=== PATIENT | female | born 1970 | race Caucasian/White ===

== ENCOUNTER → 2016-10-29 | Outpatient (REF) | payer BC ==
[2016-10-29 12:29] LABS: ALBUMIN 3.7 GM/DL (3.2-5.2); ALBUMIN/GLOBULIN RATIO 1.23 (1.00-1.93); ALKALINE PHOSPHATASE 89 U/L (45-117); ALT/SGPT 27 U/L (12-78); ANION GAP 9 MEQ/L (8-16); AST/SGOT 14 U/L (15-37); BILIRUBIN,TOTAL 0.4 MG/DL (0.2-1.0); BLOOD UREA NITROGEN 15 MG/DL (7-18); CALCIUM LEVEL 8.9 MG/DL (8.5-10.1); CARBON DIOXIDE LEVEL 26 MEQ/L (21-32); CHLORIDE LEVEL 107 MEQ/L (98-107); CHOLESTEROL LEVEL 250 MG/DL (<200); CREATININE FOR GFR 0.73 MG/DL (0.55-1.02); GLOMERULAR FILTRATION RATE > 60.0 (>58); GLUCOSE, FASTING 107 MG/DL (70-105); POTASSIUM SERUM 4.1 MEQ/L (3.5-5.1); SODIUM LEVEL 142 MEQ/L (136-145); TOTAL PROTEIN 6.7 GM/DL (6.4-8.2); TRIGLYCERIDES LEVEL 170 MG/DL (<150)
== END ==
LOC: M LABDRAW1 11:33
PROVIDERS: ATTEND Emergency Medicine
DX: E78.2 Mixed hyperlipidemia (principal); I10 Essential (primary) hypertension

== ENCOUNTER → 2017-03-14 | Outpatient (CLI) | payer BC ==
[2017-03-14 14:12] LABS: ANION GAP 7 MEQ/L (8-16); BLOOD UREA NITROGEN 22 MG/DL (7-18); CALCIUM LEVEL 8.9 MG/DL (8.5-10.1); CARBON DIOXIDE LEVEL 26 MEQ/L (21-32); CHLORIDE LEVEL 106 MEQ/L (98-107); CREATININE FOR GFR 0.76 MG/DL (0.55-1.02); GLOMERULAR FILTRATION RATE > 60.0 (>58); GLUCOSE, FASTING 91 MG/DL (70-105); POTASSIUM SERUM 4.2 MEQ/L (3.5-5.1); SODIUM LEVEL 139 MEQ/L (136-145)
== END ==
LOC: M WUC 08:52
PROVIDERS: ATTEND Physician Assistant Medical
DX: I10 Essential (primary) hypertension (principal)

== ENCOUNTER → 2018-05-16 | Outpatient (CLI) | payer BC ==
[2018-05-16 12:40] LABS: BASO % 0.3 % (0.0-1.0); EOS # 0.2 10^3/uL (0.0-0.50); HEMOGLOBIN 14.4 g/dl (12.0-15.5); IMMATURE GRANULOCYTE % 0.7 % (0-3.0); LYMPH # 2.4 10^3/uL (1.5-4.5); LYMPH % 21.7 % (24.0-44.0); MEAN CORPUSCULAR HEMOGLOBIN 31.4 pg (27.0-33.0); MEAN CORPUSCULAR HGB CONC 34.3 g/dl (32.0-36.5); MEAN CORPUSCULAR VOLUME 91.5 fl (80.0-96.0); MONO # 0.8 10^3/uL (0.0-0.8); MONO % 6.9 % (0.0-5.0); NEUTROPHILS # 7.4 10^3/uL (1.8-7.7); NEUTROPHILS % 68.4 % (36.0-66.0); PLATELET COUNT, AUTOMATED 267 10^3/uL (150-450); RED BLOOD COUNT 4.59 10^6/uL (4.00-5.40); RED CELL DISTRIBUTION WIDTH 12.6 % (11.5-14.5); WHITE BLOOD COUNT 10.8 10^3/uL (4.0-10.0)
[2018-05-16 13:05] LABS: ALBUMIN 3.5 GM/DL (3.2-5.2); ALKALINE PHOSPHATASE 65 U/L (45-117); ALT/SGPT 30 U/L (12-78); ANION GAP 8 MEQ/L (8-16); AST/SGOT 19 U/L (7-37); BILIRUBIN,TOTAL 0.4 MG/DL (0.2-1.0); BLOOD UREA NITROGEN 9 MG/DL (7-18); CALCIUM LEVEL 9.1 MG/DL (8.5-10.1); CARBON DIOXIDE LEVEL 24 MEQ/L (21-32); CHLORIDE LEVEL 108 MEQ/L (98-107); CREATININE FOR GFR 0.69 MG/DL (0.55-1.30); GLOMERULAR FILTRATION RATE > 60.0 (>58); GLUCOSE, FASTING 97 MG/DL (70-100); POTASSIUM SERUM 4.3 MEQ/L (3.5-5.1); SODIUM LEVEL 140 MEQ/L (136-145); TOTAL PROTEIN 7.1 GM/DL (6.4-8.2)
[2018-05-16 16:11] LABS: ALBUMIN/GLOBULIN RATIO 0.97 (1.00-1.93)
[2018-05-18 00:07] LABS: EBV VIRAL CAPSID AG IgM <36.0 U/mL (0.0-35.9)
== END ==
LOC: M WUC 10:00
DX: J02.9 Acute pharyngitis, unspecified (principal)
CPT/HCPCS: 80053

== ENCOUNTER → 2018-05-16 | Outpatient (REF) | payer BC | LOC: M LAB REF 12:13 | DX: J02.9 Acute pharyngitis, unspecified (principal) | CPT/HCPCS: 87081 ==

== ENCOUNTER → 2019-07-05 | Outpatient (CLI) | payer BC ==
[2019-07-05 13:30] LABS: ALBUMIN 3.5 GM/DL (3.2-5.2); ALT/SGPT 23 U/L (12-78); BILIRUBIN,TOTAL 0.4 MG/DL (0.2-1.0); BLOOD UREA NITROGEN 16 MG/DL (7-18); CALCIUM LEVEL 9.2 MG/DL (8.5-10.1); CARBON DIOXIDE LEVEL 25 MEQ/L (21-32); CHLORIDE LEVEL 108 MEQ/L (98-107); CHOLESTEROL LEVEL 329 MG/DL (<200); CHOLESTEROL RISK RATIO 6.854 (<5); CREATININE FOR GFR 0.86 MG/DL (0.55-1.30); GLOMERULAR FILTRATION RATE > 60.0 (>58); GLUCOSE, FASTING 100 MG/DL (70-100); HDL CHOLESTEROL 48 MG/DL (>40); LDL CHOLESTEROL 225 MG/DL (<100); NON-HDL-C 281 MG/DL; POTASSIUM SERUM 4.3 MEQ/L (3.5-5.1); SODIUM LEVEL 139 MEQ/L (136-145); TOTAL PROTEIN 7.4 GM/DL (6.4-8.2); TRIGLYCERIDES LEVEL 280 MG/DL (<150)
[2019-07-05 13:38] LABS: BASO % 0.3 % (0.0-1.0); EOS # 0.2 10^3/uL (0.0-0.5); EOS % 1.8 % (0.0-3.0); HEMOGLOBIN 15.7 g/dl (12.0-15.5); LYMPH # 2.4 10^3/uL (1.5-5.0); LYMPH % 26.3 % (24.0-44.0); MEAN CORPUSCULAR HGB CONC 32.7 g/dl (32.0-36.5); MEAN CORPUSCULAR VOLUME 94.7 fl (80.0-96.0); MONO # 0.6 10^3/uL (0.0-0.8); NEUTROPHILS # 5.7 10^3/uL (1.5-8.5); NEUTROPHILS % 63.5 % (36.0-66.0); PLATELET COUNT, AUTOMATED 288 10^3/uL (150-450); RED BLOOD COUNT 5.07 10^6/uL (4.00-5.40); WHITE BLOOD COUNT 8.9 10^3/uL (4.0-10.0)
== END ==
LOC: M SMT 08:55
PROVIDERS: ATTEND Physician Assistant
DX: I10 Essential (primary) hypertension (principal); E78.2 Mixed hyperlipidemia; K21.9 Gastro-esophageal reflux disease without esophagitis

== ENCOUNTER → 2019-11-22 | Outpatient (CLI) | payer BC ==
[2019-11-22 10:31] LABS: ALBUMIN 3.3 GM/DL (3.2-5.2); ALT/SGPT 61 U/L (12-78); BILIRUBIN,TOTAL 0.4 MG/DL (0.2-1.0); BLOOD UREA NITROGEN 14 MG/DL (7-18); CALCIUM LEVEL 9.2 MG/DL (8.5-10.1); CARBON DIOXIDE LEVEL 25 MEQ/L (21-32); CHLORIDE LEVEL 109 MEQ/L (98-107); CHOLESTEROL LEVEL 189 MG/DL (<200); CREATININE FOR GFR 0.69 MG/DL (0.55-1.30); GLOMERULAR FILTRATION RATE > 60.0 (>58); GLUCOSE, FASTING 108 MG/DL (70-100); HDL CHOLESTEROL 42 MG/DL (>40); LDL CHOLESTEROL 122 MG/DL (<100); NON-HDL-C 147 MG/DL; POTASSIUM SERUM 4.7 MEQ/L (3.5-5.1); SODIUM LEVEL 141 MEQ/L (136-145); TOTAL PROTEIN 6.8 GM/DL (6.4-8.2); TRIGLYCERIDES LEVEL 126 MG/DL (<150)
== END ==
LOC: M WUC 08:54
PROVIDERS: ATTEND Physician Assistant
DX: E78.5 Hyperlipidemia, unspecified (principal)

== ENCOUNTER → 2020-04-25 | Outpatient (CLI) | payer BC ==
[~2020-04-25] MED LIST: ACET-908 PO; AMLO1TAB24 PO; ASPI81TA26 PO; CRES5TAB PO; ELIQ5TAB PO; FISH1000 PO; IBUP-1114 PO; LOSA100T50 PO; NORT0.5T2 PO; OMEG1CAP4 PO; OMEP1CAP73 PO
[2020-04-25 12:06] LABS: HEMATOCRIT 42.8 % (36.0-47.0); HEMOGLOBIN 14.1 g/dl (12.0-15.5); MEAN CORPUSCULAR HEMOGLOBIN 29.7 pg (27.0-33.0); MEAN CORPUSCULAR HGB CONC 32.9 g/dl (32.0-36.5); MEAN CORPUSCULAR VOLUME 90.3 fl (80.0-96.0); PLATELET COUNT, AUTOMATED 317 10^3/uL (150-450); RED BLOOD COUNT 4.74 10^6/uL (4.00-5.40); WHITE BLOOD COUNT 8.3 10^3/uL (4.0-10.0)
[2020-04-25 12:36] LABS: BLOOD UREA NITROGEN 13 MG/DL (7-18); CALCIUM LEVEL 9.1 MG/DL (8.5-10.1); CARBON DIOXIDE LEVEL 24 MEQ/L (21-32); CHLORIDE LEVEL 109 MEQ/L (98-107); CREATININE FOR GFR 0.77 MG/DL (0.55-1.30); GLOMERULAR FILTRATION RATE > 60.0 (>58); GLUCOSE, FASTING 100 MG/DL (70-100); POTASSIUM SERUM 4.3 MEQ/L (3.5-5.1); SODIUM LEVEL 137 MEQ/L (136-145)
== END ==
LOC: M LAB 11:13
PROVIDERS: ATTEND Physician Assistant
DX: I70.212 Atherosclerosis of native arteries of extremities with intermittent claudication, left leg (principal)

== ENCOUNTER → 2020-04-28 | Outpatient (CLI) | payer BC ==
[~2020-04-28] MED LIST changes: +ISOVUE-300 61% 50ML VIAL As Ordered ONE; +LIDOCAINE 1% MDV 20ML VIAL As Ordered ONE; +MIDAZOLAM INJ 2MG/2ML VIAL (J2250 PER 1MG) As Ordered ONE; +fentaNYL 100 MCG/2 ML INJECTION (J3010) As Ordered ONE
== END ==
LOC: M IRPRO 08:43
PROVIDERS: ATTEND Surgery Vascular Surgery
DX: I70.212 Atherosclerosis of native arteries of extremities with intermittent claudication, left leg (principal); Z53.9 Procedure and treatment not carried out, unspecified reason

== ENCOUNTER 2020-05-19 08:18 | Inpatient (IN) | payer BC ==
[~2020-05-19] VITALS: Ht 157.5 cm; Wt 106.1 kg
[~2020-05-19 08:18] MED LIST changes: -ACET-908 PO; -ELIQ5TAB PO; -ISOVUE-300 61% 50ML VIAL As Ordered ONE; -LIDOCAINE 1% MDV 20ML VIAL As Ordered ONE; -MIDAZOLAM INJ 2MG/2ML VIAL (J2250 PER 1MG) As Ordered ONE; -OMEG1CAP4 PO; -fentaNYL 100 MCG/2 ML INJECTION (J3010) As Ordered ONE
[2020-05-19] MEDS ORDERED: ATORVASTATIN 20 MG TAB PO SCH (09:00)
[2020-05-19] MEDS ORDERED: fentaNYL 100 MCG/2 ML INJECTION (J3010) As Ordered ONE (09:12)
[2020-05-19] MEDS ORDERED: MIDAZOLAM INJ 2MG/2ML VIAL (J2250 PER 1MG) As Ordered ONE (09:13)
[2020-05-19] MEDS ORDERED: LIDOCAINE 1% MDV 20ML VIAL As Ordered ONE (09:13)
[2020-05-19] MEDS ORDERED: ISOVUE-300 61% 50ML VIAL As Ordered ONE (09:13)
[2020-05-19] MEDS ORDERED: METOPROLOL 5 MG/5 ML VIAL As Ordered ONE (10:15)
[2020-05-19] MEDS ORDERED: ALTEPLASE 2MG/2ML VIAL As Ordered ONE (10:39)
[2020-05-19] MEDS ORDERED: HEPARIN 25,000 UNITS/250 ML D5W BAG (100 UNITS/ML) (J1644 PER 1000UNITS) As Ordered ONE (10:46)
[2020-05-19] MEDS ORDERED: ALTEPLASE RECOMBINANT 25 MG in NS 225 ML IV SCH (11:00)
[2020-05-19] MEDS ORDERED: HEPARIN DRIP 25,000 UNITS in IV 1 EA IV SCH (11:00)
[2020-05-19] MEDS ORDERED: NS 1,000 ML IV SCH (11:30)
[2020-05-19] MEDS ORDERED: diazePAM 5 MG TAB PO PRN (11:30)
[2020-05-19] MEDS ORDERED: PERCOCET 5MG/325MG TAB PO PRN ×2 (11:30)
--- NOTE | 2020-05-19 11:54 | ROOPDOC ---
[facility] Report Of Operation Report of Operation DATE OF PROCEDURE: 05/19/20 PREPROCEDURE DIAGNOSES: Atherosclerosis the [place] arteries with left lower extremity lifestyle limiting claudication POSTPROCEDURE DIAGNOSES: Likely embolic event left tibioperoneal trunk, mid left anterior tibial artery PROCEDURE: 1. Ultrasound-guided access right common femoral artery 2. Aortoiliofemoral arteriogram and selection of the left superficial femoral artery with left lower extremity runoff 3. Placement of a 30 cm infusion length TPA thrombolysis catheter left popliteal artery and anterior tibial artery, confirmed by arteriogram SURGEON: Karime Mendez MD ANESTHESIA: Local anesthesia 9 mL lidocaine. Moderate intravenous conscious s edation was supervised by Dr. Mendez. The patient was independently monitored by registered nurse assigned to the Department of radiology using automated blood pressure, EKG, and pulse oximetry. A detailed sedation record is permanently stored in the hospital information system. The following is a brief sedation record: Start time 10:31, stop time 10:48, Versed 1.5 mg IV, fentanyl 75 g IV, metoprolol 5 mg IV, tPA 8 mg IV. CONTRAST: 38 mL Isovue-300 INDICATION FOR PROCEDURE: Ms. Martinez is a 49-year-old patient with suspected atherosclerosis of the [place] arteries and lifestyle limiting claudication and left lower extremity. Risks benefits and alternatives to a left lower extremity arteriogram and potential intervention were explained to the patient and she is agreeable to proceed. Informed consent was obtained. INTERPRETATION: 1. The distal aorta and common iliac arteries, hypogastric arteries, and external iliac arteries are widely patent bilaterally. 2. The left common femoral artery and profunda are widely patent. The left superficial femoral artery is widely patent. Mild ectasias noted. No flow limitation noted. The left popliteal artery is also widely patent. 3. The patient has a flushed complete occlusion of her tibioperoneal trunk at the origin and does not reconstitute and still the distal peroneal and posterior tibial arteries through thready collaterals. She does have flow through the anterior tibial artery but it also occludes at the distal calf and reconstitutes minimally into the dorsal pedis artery through thready collaterals. 4. Successful placement of left 30 cm infusion length TPA thrombolysis catheter left popliteal artery and anterior tibial artery. REPORT OF OPERATION: Patient was brought to the angiographic suite in stable condition. Her bilateral groins were prepped and draped in a sterile fashion. A timeout was performed. Sedation was administered without complication. Local anesthesia was administer to skin and subcutaneous tissue over the right common femoral artery. A microneedle was used to access the artery under ultrasound guidance. A wire was passed through this access and the needle was removed. A 4 Qatari sheath was placed and flushed with saline. Next, a Glidewire and flushing catheter were advanced into the distal aorta. Please see interpretation above for aortoiliofemoral arteriogram. We then went up and over the bifurcation with the wire and the catheter and selected the left superficial femoral artery and a left lower extremity runoff was performed. Please see interpretation above. At this point, I did not feel this was atherosclerosis and more likely an embolic event. Therefore, we exchanged the sheath for 7 Qatari sheath and flushed the sheath with saline. We then introduced a 30 cm infusion length TPA thrombolysis catheter through the left popliteal artery into the left anterior tibial artery. Initially, I tried to cross through the tibioperoneal trunk, but this proved difficult, likely due to chronicity of the thrombus possibly as an alternative this may have been a plaque embolic event. Therefore, we navigated the catheter into the anterior tibial artery down to the area of occlusion at the distal calf. We were not able to pass it through this area, but up to it. Hopefully, after 24 hours of TPA, both areas will soften and we may be able to reposition the catheter tomorrow if necessary to provide more thrombolysis. 8 mg of TPA was injected through the catheter. I discussed with the patient while we are waiting for the TPA drip whether or not she felt she might be able to urinate on a bedpan and she was uncertain. Therefore I felt the safest thing to do was to place a Parmar catheter. First, we did place sterile dressings over the sheath and catheter securing it to the leg to prevent dislodgment. We flushed the 7 Lex nch sheath with saline and of 400 unit an hour heparin drip was begun through the sheath. We then placed a Parmar catheter very carefully to prevent trauma to the urethra. This was successful. No hematuria was noted. We then began the TPA thrombolysis drip through the thrombolysis catheter. The patient was then transferred to Hospital bed and to the ICU in stable condition. She tolerated the sedation and the procedure well without difficulty. ESTIMATED BLOOD LOSS: Approximately 5 mL. COMPLICATIONS: None. PLAN: We plan to admit the patient to hospitalist service, we appreciate their assistance with this patient. She will go to the ICU while she is receiving thrombolysis. We will monitor closely for signs of bleeding or mental status changes and monitor her perfusion. We plan to bring the patient back at some point tomorrow for repeat arteriogram and at that time we will decide if we need to continue or discontinue the thrombolysis catheter. We will follow her fibrinogen and hemoglobin during this period. She will have a full liquid diet and nothing by mouth after midnight. She will need to be on flat bed rest, but it is okay for pillow under the knees or reverse Trendelenburg. Logroll only. We appreciate the opportunity to per to speak the care of this patient. KARIME MENDEZ MD May 19, 2020 11:54
[2020-05-19 12:24] LABS: HEMATOCRIT 38.6 % (36.0-47.0); HEMOGLOBIN 12.9 g/dl (12.0-15.5); MEAN CORPUSCULAR HEMOGLOBIN 29.7 pg (27.0-33.0); MEAN CORPUSCULAR HGB CONC 33.4 g/dl (32.0-36.5); MEAN CORPUSCULAR VOLUME 88.7 fl (80.0-96.0); PLATELET COUNT, AUTOMATED 273 10^3/uL (150-450); RED BLOOD COUNT 4.35 10^6/uL (4.00-5.40); WHITE BLOOD COUNT 9.4 10^3/uL (4.0-10.0)
--- NOTE | 2020-05-19 12:43 | HPEPDOC ---
General Date of Admission 05/19/20 Date of Service: May 19, 2020 Chief Complaint The patient is a 49-year-old female admitted with a reason for visit of [place] Of [place] Vessels Of Left Leg. Source: Patient Exam Limitations: No limitations Timing/Duration: Day(s) Severity: Moderate History of Present Illness Patient is 49 years old female with past medical history of hyperlipidemia, hypertension was admitted for thrombolysis of left distal leg. Dr. Madrid performed thrombolysis after aortoiliofemoral arteriogram. Patient stated that she has been having lifestyle limiting claudication of the left lower extremity. Patient tolerated procedure well. Patient denied fever, chills, nausea, vomiting, diarrhea or dysuria. Home Medications Scheduled Amlodipine Besylate (Amlodipine Besylate) 5 Mg Tablet, 5 MG PO DAILY, (Reported) Aspirin (Aspirin EC) 81 Mg Tablet.dr, 81 MG PO DAILY, (Reported) Losartan Potassium (Losartan Potassium) 100 Mg Tablet, 100 MG PO DAILY, (Reported) Norethindrone-Ethinyl Estrad (Nortrel 0.5-35-28 Tablet) 1 Each Tablet, 1 TAB PO DAILY for oral contraception, (Reported) Omeprazole (Omeprazole) 20 Mg Capsule.dr, 20 MG PO DAILY, (Reported) Rosuvastatin Calcium (Crestor) 5 Mg Tablet, 5 MG PO DAILY, (Reported) Scheduled PRN Ibuprofen (Ibuprofen) 400 Mg Tablet, 400 MG PO Q6HP PRN for fever, (Reported) Allergies Coded Allergies: No Known Drug Allergies (Verified Allergy, Unknown, 05/19/20) Past Medical History Medical History Hypertension, hyperlipidemia, peripheral vascular diseases Family History Mother from cancer, father had hyperlipidemia and hypertension Social History * Smoker: former Smoker Alcohol: occationally Drugs: denies A-FIB/CHADSVASC A-FIB History Current/History of A-Fib/PAF?: No Current PO Anticoag Therapy: No Review of Systems Constitutional: Denies: Chills Eyes: Denies: Pain ENT: Denies: Head Aches Skin: Denies: Rash, Lesions Pulmonary: Denies: Dyspnea Cardiovascular: Denies: Chest Pain Gastrointestinal: Denies: Nausea, Vomiting Genitourinary: Denies: Dysuria Hematologic: Denies: Bruising Musculoskeletal: Reports: Leg Pain (claudication); Denies: Neck Pain Neurological: Denies: Weakness Psych: Reports: Mood Normal Physical Examination General Exam: Positive: Alert, Cooperative Eye Exam: Positive: PERRLA ENT Exam: Positive: Atraumatic Neck Exam: Positive: Supple; Negative: JVD Chest Exam: Positive: Clear to auscultation Heart Exam: Positive: Rate Normal Telemetry: Positive: No significant arrhythmia Abdomen Exam: Positive: Normal bowel sounds Extremity Exam: Negative: Clubbing, Cyanosis, Normal pulses (diminished pulses left dorsalis pedis ) Skin Exam: Negative: Rash, Breakdown Neuro Exam: Positive: Strength at 5/5 X4 ext, Cranial Nerves 3-12 NL Psych Exam: Positive: Mental status NL Vital Signs Vital Signs Date Time Temp Pulse Resp B/P (MAP) Pulse Ox O2 Delivery O2 Flow Rate FiO2 05/19/20 11:40 92 20 97 Room Air 05/19/20 11:15 2 05/19/20 08:40 99.7 Laboratory Data Labs 24H Laboratory Tests 2 05/19/20 11:27: Nucleated Red Blood Cells % (auto) 0.0 CBC/BMP Laboratory Tests 05/19/20 11:27 Assessment/Plan Patient is 49 years old female with past medical history of hyperlipidemia, hypertension was admitted for thrombolysis of left distal leg. Dr. Madrid performed thrombolysis after aortoiliofemoral arteriogram. Patient stated that she has been having lifestyle limiting claudication of the left lower extremity. Patient tolerated procedure well. Patient denied fever, chills, nausea, vomiting , diarrhea or dysuria. Problems (1) Peripheral vascular disease Status: Chronic Problem Text: Continue thrombolysis Vascular surgical team follows her (2) Hyperlipidemia Status: Chronic Problem Text: Atorvastatin 40 mg daily (3) Hypertension Status: Chronic Problem Text: Continue home meds Plan / VTE VTE Prophylaxis Ordered?: Yes JAVIER GLASER DO May 19, 2020 12:43
[2020-05-19 12:45] VITALS: BP 123/77
[2020-05-19] MEDS ORDERED: OMEG1CAP4 PO (12:46)
[2020-05-19] MEDS: ACETAMINOPHEN TAB 650MG DOSE (2X325MG) PO PRN (13:08)
[2020-05-19 14:00] VITALS: BP 123/66
[2020-05-19 16:00] VITALS: BP 122/72
[2020-05-19] MEDS: IBUPROFEN 400 MG TAB PO PRN ×2 (16:22→23:29)
[2020-05-19 17:44] LABS: HEMOGLOBIN 12.7 g/dl (12.0-15.5); MEAN CORPUSCULAR HEMOGLOBIN 29.7 pg (27.0-33.0); MEAN CORPUSCULAR HGB CONC 33.4 g/dl (32.0-36.5); MEAN CORPUSCULAR VOLUME 88.8 fl (80.0-96.0); PLATELET COUNT, AUTOMATED 239 10^3/uL (150-450); RED BLOOD COUNT 4.28 10^6/uL (4.00-5.40); WHITE BLOOD COUNT 10.7 10^3/uL (4.0-10.0)
[2020-05-19 19:00] VITALS: BP 123/70
[2020-05-19 20:00] VITALS: BP 147/88
[2020-05-19 23:24] LABS: HEMATOCRIT 36.5 % (36.0-47.0); HEMOGLOBIN 12.3 g/dl (12.0-15.5); MEAN CORPUSCULAR HGB CONC 33.7 g/dl (32.0-36.5); PLATELET COUNT, AUTOMATED 217 10^3/uL (150-450)
[2020-05-20] VITALS: BP 128/63
[2020-05-20] MEDS ORDERED: MORPHINE 2 MG/ML 1ML VIAL (J2270) IV PRN (01:45)
[2020-05-20] MEDS ORDERED: MORPHINE 2 MG/ML 1ML VIAL (J2270) As Ordered ONE (01:47)
[2020-05-20 04:00] VITALS: BP 144/86
[2020-05-20 05:54] LABS: HEMATOCRIT 37.5 % (36.0-47.0); HEMOGLOBIN 12.5 g/dl (12.0-15.5); MEAN CORPUSCULAR HEMOGLOBIN 29.7 pg (27.0-33.0); MEAN CORPUSCULAR HGB CONC 33.3 g/dl (32.0-36.5); MEAN CORPUSCULAR VOLUME 89.1 fl (80.0-96.0); PLATELET COUNT, AUTOMATED 197 10^3/uL (150-450); RED BLOOD COUNT 4.21 10^6/uL (4.00-5.40); WHITE BLOOD COUNT 10.5 10^3/uL (4.0-10.0)
[2020-05-20 06:21] LABS: BLOOD UREA NITROGEN 9 MG/DL (7-18); CALCIUM LEVEL 8.1 MG/DL (8.5-10.1); CARBON DIOXIDE LEVEL 22 MEQ/L (21-32); CHLORIDE LEVEL 109 MEQ/L (98-107); CREATININE FOR GFR 0.62 MG/DL (0.55-1.30); GLOMERULAR FILTRATION RATE > 60.0 (>58); GLUCOSE, FASTING 118 MG/DL (70-100); MAGNESIUM LEVEL 1.8 MG/DL (1.8-2.4); POTASSIUM SERUM 3.8 MEQ/L (3.5-5.1); SODIUM LEVEL 136 MEQ/L (136-145)
[2020-05-20] MEDS ORDERED: HEPARIN SOD (PORCINE) 5000UNITS/ML 1ML VIAL/SYRINGE IV ONE (06:30)
[2020-05-20] MEDS ORDERED: fentaNYL 100 MCG/2 ML INJECTION (J3010) ONE (07:13)
[2020-05-20] MEDS ORDERED: LIDOCAINE 1% MDV 20ML VIAL ONE (07:15)
[2020-05-20] MEDS ORDERED: ISOVUE-300 61% 50ML VIAL ONE (07:15)
[2020-05-20] MEDS ORDERED: MIDAZOLAM INJ 2MG/2ML VIAL (J2250 PER 1MG) ONE (07:15)
[2020-05-20 08:00] VITALS: BP 144/85
[2020-05-20] MEDS ORDERED: OMEPRAZOLE 20 MG CAP PO SCH (09:00)
[2020-05-20] MEDS ORDERED: amLODIPine 5 MG TAB PO SCH (09:00)
[2020-05-20] MEDS ORDERED: APIXABAN 5 MG TAB (ELIQUIS) PO SCH (09:00)
[2020-05-20] MEDS ORDERED: ASPIRIN 81 MG ENTERIC TAB PO SCH (09:00)
[2020-05-20] MEDS ORDERED: LOSARTAN 50MG TABLET PO SCH (09:00)
--- NOTE | 2020-05-20 09:02 | ROOPDOC ---
[facility] Report Of Operation Report of Operation DATE OF PROCEDURE: 05/20/20 PREPROCEDURE DIAGNOSES: Left tibial artery occlusion with claudication, suspected embolism, s/p TPA thrombolysis POSTPROCEDURE DIAGNOSES: Same PROCEDURE: 1. Left lower extremity arteriogram 2. Removal TPA thrombolysis catheter 3. Angioplasty left anterior tibial artery with 2.5 x 220 bianka balloon 4. Completion arteriogram 5. Mynx closure right common femoral artery SURGEON: Karime Mendez MD ANESTHESIA: Moderate intravenous conscious sedation was supervised by Dr Mendez. The patient was independently monitored by a registered nurse assigned to the department of radiology using automated blood pressure, ECG telemetry, and pulse oximetry. The detailed sedation record is permanently stored in the hospital information system. The following is a brief sedation record: Start time 07:55, stop time 08:27, versed 1mg IV, fentanyl 50mcgg IV, heparin 3000 units, TPA 1.5mg. CONTRAST: 19 mL Isoview 300 INDICATION FOR PROCEDURE: This is a very pleasant 49-year-old patient with suspected embolic event to the left lower extremity involving the distal anterior tibial artery and the tibioperoneal trunk in the proximal peroneal and posterior tibial arteries. She returns today for a planned second arteriogram after overnight TPA thrombolysis with a catheter placed yesterday. Risks benefits alternatives to an arteriogram, possible removal of the TPA thrombolysis catheter, possible angioplasty possible stenting were explained to the patient she is agreeable to proceed. I did discuss with her that because her fibrinogen was low overnight, we did not feel comfortable continuing the TPA, and likely she did not receive enough TPA to fully resolve the chronic thrombus in the left lower extremity. However, we are limited in the duration of TPA if her fibrinogen becomes dangerously low, and I did not want to put her at undue risk. She understands this. Informed consent was obtained INTERPRETATION: 1. The popliteal artery and inflow into the anterior tibial artery is widely patent. She still has occlusion of the distal anterior tibial artery, and appears to be chronic thrombus, with some collateralization from the proximal anterior tibial artery to the peroneal and posterior tibial arteries which fell from the mid calf distally. Overall, minimal improvement in thrombus noted after TPA. 2. After angioplasty of the anterior tibial artery distally, to make sure we were not dealing with chronic plaque instead of an embolic event, we did not notice significant improvement and outflow through the anterior tibial artery although some improvement was noted. Still, the major outflow to the lower extremity is from collaterals from the proximal anterior tibial artery to the peroneal and posterior tibial artery in the mid distal calf. REPORT OF OPERATION: The patient was brought to the angiographic suite in stable condition. Her right groin including the catheter and sheath were prepped and draped in a sterile fashion. A timeout was performed. Sedation was administered without complication. An arteriogram was performed through the existing TPA catheter. Please interpretation above. We attempted to pass a wire through the catheter, but there was a kink in the catheter and the wire did not pass. Therefore, we removed the TPA catheter and went up and over the bifurcation with a Glidewire and Omni Flush catheter. We then performed another arteriogram of the left lower extremity, please interpretation above. Next, we advanced a Glidewire advantage down into the distal anterior tibial artery under fluoroscopic guidance. A 2.5 x 220 Bianka balloon was passed over the wire and will use this to angioplasty the anterior tibial artery from the distal to the mid proximal vessel. A three-minute inflation was performed and following this there was a mild improvement in flow, but this was not a plaque occlusion, it confirmed that this is chronic thrombus. 1.5 mg of TPA was given through the balloon into the anterior tibial artery and then the balloon was removed. We then concluded our procedure as we realized further angioplasty would be futile since this was chronic thrombus and not plaque. The Mynx closure device was deployed with good hemostasis. Pressure was held for 5 minutes and sterile dressings were applied. The patient was taken to recovery and then back to the ICU in stable condition. She tolerated the procedure and the sedation well. ESTIMATED BLOOD LOSS: Approximately 5 mL. COMPLICATIONS: None. PLAN: Unfortunately, it was not safe to continue TPA with her fibrinogen continuing to decrease, but she likely would have benefitted from another 24 hours of TPA. She still has quite a bit of chronic thrombus, both in the distal left anterior tibial artery and the tibioperoneal trunk/proximal peroneal/posterior tibial arteries. For now, we will start her on eliquis which may improve her claudication, but she will likely need another attempt at TPA in the near future once her fibrinogen level normalizes, vs a bypass to the distal posterior tibial artery. We will see how she does outpatient with anticoagulation and decide on further management. 5 hours bedrest post proced ure, d/c hernandez, regular diet, start eliquis this morning, and likely d/c home this afternoon. We appreciate the hospitalist's assistance with this patient. KARIME MENDEZ MD May 20, 2020 09:02
[2020-05-20 09:21] VITALS: BP 144/85
[2020-05-20 12:00] VITALS: BP 146/80
[2020-05-20] MEDS ORDERED: ELIQ5TAB PO (13:09)
[2020-05-20] MEDS: ACETAMINOPHEN TAB 650MG DOSE (2X325MG) PO PRN (13:28)
[2020-05-20 13:35] LABS: HEMATOCRIT 39.6 % (36.0-47.0); MEAN CORPUSCULAR HEMOGLOBIN 29.4 pg (27.0-33.0); MEAN CORPUSCULAR HGB CONC 32.8 g/dl (32.0-36.5); MEAN CORPUSCULAR VOLUME 89.6 fl (80.0-96.0); PLATELET COUNT, AUTOMATED 214 10^3/uL (150-450); RED BLOOD COUNT 4.42 10^6/uL (4.00-5.40); WHITE BLOOD COUNT 9.3 10^3/uL (4.0-10.0)
[2020-05-20 13:52] LABS: INR 1.23; PROTHROMBIN TIME 15.7 SECONDS (11.8-14.0)
[2020-05-20 13:53] LABS: PARTIAL THROMBOPLASTIN TIME 32.4 SECONDS (25.0-38.4)
--- NOTE | 2020-05-20 17:30 | DS.PDOC ---
Discharge Summary General Date of Admission May 19, 2020 at 12:38 Date of Discharge 05/20/20 Discharge Summary PROCEDURES PERFORMED DURING STAY: Thrombolysis ADMITTING DIAGNOSES: Peripheral vascular disease Hyperlipidemia Hypertension Morbid obesity DISCHARGE DIAGNOSES: Peripheral vascular disease Hyperlipidemia Hypertension Morbid obesity COMPLICATIONS/CHIEF COMPLAINT: Athscl Of [place] Vessels Of Left Leg. HISTORY OF PRESENT ILLNESS:Patient is 49 years old female with past medical history of hyperlipidemia, hypertension was admitted for thrombolysis of left distal leg. Dr. Madrid performed thrombolysis after aortoiliofemoral wang riogram. Patient stated that she has been having lifestyle limiting claudication of the left lower extremity. Patient tolerated procedure well. Patient denied fever, chills, nausea, vomiting, diarrhea or dysuria. HOSPITAL COURSE: During hospital stay following issue addressed. Thrombolysis for left distal leg was initiated.Unfortunately, it was not safe to continue TPA with her fibrinogen continuing to decrease, but she likely would have benefitted from another 24 hours of TPA. She still has quite a bit of chronic thrombus, both in the distal left anterior tibial artery and the tibioperoneal trunk/proximal peroneal/posterior tibial arteries. For now, we will start her on eliquis which may improve her claudication, but she will likely need another attempt at TPA in the near future once her fibrinogen level normalizes, vs a bypass to the distal posterior tibial artery. We will see how she does outpatient with anticoagulation and decide on further management. Most likely patient developed arterial clots due to OCP for control. We recommended to stop OCP. Patient will need follow-up with mineral mixer to rule out any other recent for arterial clots from admission DISCHARGE MEDICATIONS: Please see below. ALLERGIES: Please see below. PHYSICAL EXAMINATION ON DISCHARGE: VITAL SIGNS: Please see below. General Exam: Positive: Alert, Cooperative Eye Exam: Positive: PERRLA ENT Exam: Positive: Atraumatic Neck Exam: Positive: Supple; Negative: JVD Chest Exam: Positive: Clear to auscultation Heart Exam: Positive: Rate Normal Telemetry: Positive: No significant arrhythmia Abdomen Exam: Positive: Normal bowel sounds Extremity Exam: Negative: Clubbing, Cyanosis, Normal pulses (diminished pulses left dorsalis pedis ) Skin Exam: Negative: Rash, Breakdown Neuro Exam: Positive: Strength at 5/5 X4 ext, Cranial Nerves 3-12 NL Psych Exam: Positive: Mental status NL LABORATORY DATA: Please see below. PROGNOSIS: fair ACTIVITY: [As tolerated]. DIET: Cardiac DISPOSITION: Home, Self-Care. DISCHARGE INSTRUCTIONS: Stopped taking OCP ITEMS TO FOLLOWUP ON ON OUTPATIENT: Follow-up with mineral mixer, vascular surgeon DISCHARGE CONDITION: [Stable]. TIME SPENT ON DISCHARGE: Greater than 40 minutes. Vital Signs/I&Os Vital Signs Date Time Temp Pulse Resp B/P (MAP) Pulse Ox O2 Delivery O2 Flow Rate FiO2 05/20/20 12:00 98.9 86 18 146/80 (102) 98 Room Air 05/20/20 08:35 2 I&O- Last 24 Hours up to 6 AM 05/20/20 05:59 Intake Total 1588 ml Output Total 1440 ml Balance 148 ml Laboratory Data Labs 24H Laboratory Tests 2 05/19/20 17:25: Nucleated Red Blood Cells % (auto) 0.0, Fibrinogen 154L 05/19/20 23:08: Nucleated Red Blood Cells % (auto) 0.0, Fibrinogen 132L 05/20/20 05:40: Nucleated Red Blood Cells % (auto) 0.0, Fibrinogen 105L, Anion Gap 5L, Glomerular Filtration Rate > 60.0, Calcium Level 8.1L, Magnesium Level 1.8 05/20/20 12:57: Nucleated Red Blood Cells % (auto) 0.0, Fibrinogen 112L, Prothrombin Time 15.7H, Prothromb Time International Ratio 1.23, Activated Partial Thromboplast Time 32.4 05/20/20 15:13: CBC/BMP Laboratory Tests 05/19/20 17:25 05/19/20 23:08 05/20/20 05:40 05/20/20 12:57 Discharge Medications Scheduled Amlodipine Besylate (Amlodipine Besylate) 5 Mg Tablet, 5 MG PO DAILY, (Reported) Apixaban (Eliquis) 5 Mg Tablet, 5 MG PO BID Aspirin (Aspirin EC) 81 Mg Tablet.dr, 81 MG PO DAILY, (Reported) Losartan Potassium (Losartan Potassium) 100 Mg Tablet, 100 MG PO DAILY, (Reported) Omeprazole (Omeprazole) 20 Mg Capsule.dr, 20 MG PO DAILY, (Reported) Rosuvastatin Calcium (Crestor) 5 Mg Tablet, 5 MG PO QHS, (Reported) Scheduled PRN Ibuprofen (Ibuprofen) 400 Mg Tablet, 400 MG PO Q6H PRN for PAIN / FEVER, (Reported) Allergies Coded Allergies: No Known Drug Allergies (Verified Allergy, Unknown, 05/19/20) JAVIER GLASER DO May 20, 2020 17:30
[2020-05-20] MEDS ORDERED: ATORVASTATIN 20 MG TAB PO SCH (21:00)
[2020-07-15] MEDS ORDERED: ACET-908 PO (11:12)
== END 2020-05-20 15:45 | disposition home or self-care (01) | DRG 181 ==
LOC: M IRPRO 08:18 → M ICU 12:38
PROVIDERS: ADMIT Surgery Vascular Surgery; ATTEND Internal Medicine
PROC: 3E05317 Introduction of Other Thrombolytic into Peripheral Artery, Percutaneous Approach (ICD-10-PCS; 2020-05-19)
PROC: 04HN33Z Insertion of Infusion Device into Left Popliteal Artery, Percutaneous Approach (ICD-10-PCS; principal; 2020-05-19 09:30)
PROC: 04PY33Z Removal of Infusion Device from Lower Artery, Percutaneous Approach (ICD-10-PCS; 2020-05-20)
PROC: 047Q3ZZ Dilation of Left Anterior Tibial Artery, Percutaneous Approach (ICD-10-PCS; 2020-05-20)
PROC: 3E05317 Introduction of Other Thrombolytic into Peripheral Artery, Percutaneous Approach (ICD-10-PCS; 2020-05-20)
DX: I74.3 Embolism and thrombosis of arteries of the lower extremities (principal); I10 Essential (primary) hypertension; E78.5 Hyperlipidemia, unspecified; I70.212 Atherosclerosis of native arteries of extremities with intermittent claudication, left leg; Z79.82 Long term (current) use of aspirin; Z79.899 Other long term (current) drug therapy; Z87.891 Personal history of nicotine dependence

== ENCOUNTER → 2020-07-10 | Outpatient (CLI) | payer BC ==
[~2020-07-10] MED LIST changes: +ACET-908 PO; +ELIQ5TAB PO; +OMEG1CAP4 PO
--- NOTE | 2020-07-10 11:16 | REP ---
INDICATION: ATHSCL ARTERIES W/ CLAUDICATIONS EMBOLISM THROMB A FILE RM. On 05/19/2020 patient underwent catheter thrombolysis in the left lower extremity. COMPARISON: None. TECHNIQUE: Bilateral lower extremity duplex arterial ultrasound. FINDINGS: Ankle brachial indices are measured at 1.3 on the right and 0.9 on the left. Relatively normal triphasic and biphasic waveforms are noted in the left lower extremity and triphasic waveforms are noted in the arterial tree in the right lower extremity. No right-sided stenosis is seen. 3:1 velocity ratio stenosis is observed in the left tibial-peroneal trunk trickle flow is seen in the small anterior tibial artery distally. Right lower extremity arterial Doppler velocity chart: Right PAD EXTRACTION TENDER PSV 111 cm/S Profundal a 109 Proximal SFA 73 Mid SFA 63 Distal SFA 53 Popliteal 39 Proximal FRANCESCA 55 Tibial-peroneal trunk 53 Proximal RESIDENT SERVICES SUPERVISOR 37 Distal RESIDENT SERVICES SUPERVISOR 66 Distal FRANCESCA 55 Left lower extremity arterial Doppler velocity chart: Left PAD EXTRACTION TENDER PSV 93 cm/S Profundal 107 Proximal SFA 72 Mid SFA 83 Distal SFA 56 Popliteal 50 Proximal FRANCESCA 40 Tibial-peroneal trunk 135 Proximal RESIDENT SERVICES SUPERVISOR 47 Distal RESIDENT SERVICES SUPERVISOR 44 Distal FRANCESCA 33 IMPRESSION: There is a 3/1 velocity ratio stenosis in the left tibial-peroneal trunk. Biphasic waveforms are seen distal to this in the left lower extremity. Trickle flow in the distal anterior tibial artery on the left. <Electronically signed by Ap Haynes > 07/10/20 [id number]
== END ==
LOC: M RAD 08:02
PROVIDERS: ATTEND Physician Assistant
DX: M79.606 Pain in leg, unspecified (principal); I70.212 Atherosclerosis of native arteries of extremities with intermittent claudication, left leg

== ENCOUNTER → 2020-07-11 | Outpatient (CLI) | payer BC | LOC: M LABSMTC 11:00 | PROVIDERS: ATTEND Anesthesiology | DX: Z01.812 Encounter for preprocedural laboratory examination (principal); Z20.828 Contact with and (suspected) exposure to other viral communicable diseases | CPT/HCPCS: C9803; U0003 ==

== ENCOUNTER 2020-07-16 12:49 | Day surgery (SDC) | payer BC ==
[~2020-07-16] VITALS: Ht 157.5 cm; Wt 109.8 kg
[~2020-07-16 12:49] MED LIST changes: +NS 1,000 ML IV ONE
[2020-07-16] MEDS ORDERED: MIDAZOLAM INJ 2MG/2ML VIAL (J2250 PER 1MG) As Ordered ONE ×3 (13:38→14:19)
[2020-07-16] MEDS ORDERED: LIDOCAINE VISCOUS 2% SOLN 15ML UDC As Ordered ONE (13:39)
[2020-07-16] MEDS: MIDAZOLAM INJ 2MG/2ML VIAL (J2250 PER 1MG) IV PRN ×3 (14:08→14:19)
[2020-07-16 15:00] VITALS: BP 118/72
[2020-07-16] MEDS ORDERED: LIDOCAINE VISCOUS 2% SOLN 15ML UDC PO ONE (15:00)
[2020-07-16] MEDS ORDERED: MIDAZOLAM INJ 2MG/2ML VIAL (J2250 PER 1MG) IV ONE (15:00)
--- NOTE | 2020-07-17 09:56 | T-ECHO ---
DATE: 07/16/2020 PROCEDURE: Transesophageal echocardiogram. REFERRING PHYSICIAN: Dariel German M.D. INDICATIONS: Arterial embolism of extremities, unspecified. PREPROCEDURE DIAGNOSIS: Arterial embolism of extremities, unspecified. POSTPROCEDURE DIAGNOSIS: Arterial embolism of extremities, unspecified. FINDINGS: Normal KARI with negative bubble study. PROCEDURE PERFORMED BY: Dariel German M.D. LENGTH CONTROL TESTER: SEDATION: Midazolam 7 mg IV. COMPLICATIONS: None. DESCRIPTION OF PROCEDURE: Rhythm was sinus tachycardia. The patient received viscous lidocaine to gargle and swallow. Esophageal intubation was accomplished without difficulty using a Cabrera 2D transesophageal echocardiogram probe. The left ventricle appeared normal in size and systolic function. Right ventricle appeared normal in size and systolic function. The atria appeared to be normal in size. Pulmonary venous inflow connections to the left atrium normal. Pulse wave Doppler in the left upper pulmonary vein was normal. No mass or thrombi was seen within the atria or their appendages. Atrial septum was intact anatomically and by color flow Doppler. Saline bubble study x1 was performed, which was negative for intracardiac shunting. This was performed using 8 mL of normal saline, 1 mL of the patients own blood, and 1 mL of air. We did agitate it back and forth between two 10 mL syringes via a three-way stopcock. Imaging was recorded during Valsalva maneuver release upon appearance of bubbles in the right atrium. No pericardial effusion. All the cardiac functions were structurally functional. Mild mitral regurgitation within normal limits was present. Distal aortic arch and descending thoracic aorta were normal. CONCLUSIONS: 1. Normal transesophageal echocardiogram Doppler. 2. Negative bubble study for detection of intracardiac shunting. 3. Normal left ventricle size and systolic function and regional wall motion. Left ventricular ejection fraction (LVEF) 65%-70% by visual estimate. MTDD
== END 2020-07-16 15:01 | disposition home or self-care (01) ==
LOC: M SDC 12:49
PROVIDERS: ATTEND Internal Medicine Cardiovascular Disease
DX: I74.4 Embolism and thrombosis of arteries of extremities, unspecified (principal); I10 Essential (primary) hypertension; K21.9 Gastro-esophageal reflux disease without esophagitis; E78.49 Other hyperlipidemia; K44.9 Diaphragmatic hernia without obstruction or gangrene; R94.31 Abnormal electrocardiogram [ECG] [EKG]; E66.9 Obesity, unspecified; Z79.01 Long term (current) use of anticoagulants; Z79.82 Long term (current) use of aspirin; Z79.899 Other long term (current) drug therapy
CPT/HCPCS: 93312; 93320; 93325; J2250

== ENCOUNTER → 2020-08-06 | Outpatient (CLI) | payer BC ==
[~2020-08-06] MED LIST changes: -NS 1,000 ML IV ONE
[2020-08-06 17:23] LABS: CHOLESTEROL RISK RATIO 4.64 (<5); FREE T4 0.78 NG/DL (0.76-1.46); THYROID STIMULATING HORMONE 3.09 uIU/ML (0.358-3.740)
[2020-08-06 18:43] LABS: HEMOGLOBIN A1c 5.7 %
== END ==
LOC: M WUC 15:25
PROVIDERS: ATTEND Physician Assistant Medical
DX: E78.2 Mixed hyperlipidemia (principal)

== ENCOUNTER → 2020-09-06 | Outpatient (CLI) | payer BC | LOC: M WUC 14:39 | PROVIDERS: ATTEND Nurse Practitioner Family | DX: N95.1 Menopausal and female climacteric states (principal) ==

== ENCOUNTER → 2021-02-05 | Outpatient (CLI) | payer BC ==
[~2021-02-05] MED LIST changes: -ACET-908 PO; +ACET-910 PO; -OMEG1CAP4 PO; +OMEG1CAP85 PO
[2021-02-05 12:19] LABS: APPEARANCE, URINE HAZY (CLEAR); BACTERIA, URINE AUTO 1+ (NEGATIVE); BILIRUBIN, URINE AUTO NEGATIVE (NEGATIVE); BLOOD, URINE BLOOD NEGATIVE (NEGATIVE); COLOR, URINE YELLOW (YELLOW); GLUCOSE, URINE (UA) AUTO NEGATIVE (NEGATIVE); KETONE, URINE AUTO NEGATIVE (NEGATIVE); LEUKOCYTE ESTERASE, URINE AUTO NEGATIVE (NEGATIVE); MUCUS, URINE SMALL (NEGATIVE); NITRITE, URINE AUTO NEGATIVE (NEGATIVE); PROTEIN, URINE AUTO NEGATIVE (NEGATIVE); RBC, URINE AUTO 2 /HPF (0-3); SPECIFIC GRAVITY URINE AUTO 1.018 (1.002-1.035); SQUAMOUS EPITHELIAL CELL UR AU 3 /HPF (0-6); UROBILINOGEN, URINE AUTO 0.2 mg/dL (0.0-2.0); WBC, URINE AUTO 0 /HPF (0-3)
[2021-02-05 12:26] LABS: BASO % 0.3 % (0.0-1.0); EOS # 0.2 10^3/uL (0.0-0.5); EOS % 2.9 % (0.0-3.0); HEMATOCRIT 42.9 % (36.0-47.0); LYMPH # 2.4 10^3/uL (1.5-5.0); LYMPH % 30.1 % (24.0-44.0); MEAN CORPUSCULAR HEMOGLOBIN 29.8 pg (27.0-33.0); MEAN CORPUSCULAR HGB CONC 32.6 g/dl (32.0-36.5); MEAN CORPUSCULAR VOLUME 91.3 fl (80.0-96.0); MONO # 0.6 10^3/uL (0.0-0.8); MONO % 7.6 % (2.0-8.0); NEUTROPHILS # 4.7 10^3/uL (1.5-8.5); NEUTROPHILS % 58.5 % (36.0-66.0); PLATELET COUNT, AUTOMATED 287 10^3/uL (150-450); WHITE BLOOD COUNT 7.9 10^3/uL (4.0-10.0)
[2021-02-05 12:44] LABS: HEMOGLOBIN A1c 5.5 %
[2021-02-05 13:08] LABS: ALBUMIN 3.6 GM/DL (3.2-5.2); ALT/SGPT 49 U/L (12-78); BILIRUBIN,TOTAL 0.3 MG/DL (0.2-1.0); BLOOD UREA NITROGEN 17 MG/DL (7-18); CALCIUM LEVEL 9.2 MG/DL (8.5-10.1); CARBON DIOXIDE LEVEL 27 MEQ/L (21-32); CHLORIDE LEVEL 107 MEQ/L (98-107); CHOLESTEROL LEVEL 208 MG/DL (<200); CHOLESTEROL RISK RATIO 4.622 (<5); CREATININE FOR GFR 0.68 MG/DL (0.55-1.30); FREE T4 0.79 NG/DL (0.76-1.46); GLOMERULAR FILTRATION RATE > 60.0 (>51); GLUCOSE, FASTING 98 MG/DL (70-100); HDL CHOLESTEROL 45 MG/DL (>40); IRON (FE) 44 UG/DL (50-170); LDL CHOLESTEROL 121 MG/DL (<100); NON-HDL-C 163 MG/DL; POTASSIUM SERUM 4.5 MEQ/L (3.5-5.1); SODIUM LEVEL 139 MEQ/L (136-145); TOTAL PROTEIN 7.3 GM/DL (6.4-8.2); TRIGLYCERIDES LEVEL 209 MG/DL (<150)
[2021-02-05 13:09] LABS: VITAMIN B12 LEVEL 277 PG/ML
[2021-02-05 13:13] LABS: FOLATE 6.8 NG/ML
== END ==
LOC: M WUC 08:44
PROVIDERS: ATTEND Physician Assistant
DX: I10 Essential (primary) hypertension (principal); E78.5 Hyperlipidemia, unspecified; E66.01 Morbid (severe) obesity due to excess calories; R53.83 Other fatigue; R73.01 Impaired fasting glucose

== ENCOUNTER → 2021-02-27 | Outpatient (CLI) | payer BC ==
--- NOTE | 2021-02-27 16:10 | REP ---
INDICATION: ARTERIAL EMBOLISM AND THROMBOSIS. COMPARISON: Comparison lower extremity arterial Doppler sonography 10 July 2020.. TECHNIQUE: Bilateral lower extremity arterial Doppler ultrasound. FINDINGS: Ankle brachial indices are measured at 0.94 on the right and 0.70 on the left. Incidental note is made of a Bell's cyst on the left 3.8 x 1.5 x 1.6 cm in diameter. Are the right lower extremity arterial tree appears morphologically normal. Normal triphasic arterial waveforms and velocities are observed. No high-grade stenosis or occlusion is seen on the right. No significant plaquing on the right. In the left lower extremity no observable plaquing is seen proximally from the common femoral through through the popliteal artery. There is evidence of a mild stenosis in the proximal tibial-peroneal trunk, 2-1 velocity ratio. Flow velocity is decreased and the waveforms are monophasic in the posterior suspect residual thrombus in the proximal posterior tibial artery. The anterior tibial artery appears small and we were unable to fill a vessel with color flow suggesting residual thrombus here. The ankle brachial index is reduced compared to the prior study. Left lower extremity arterial Doppler velocity chart: Left RAIL TRACTOR OPERATOR PSV 112 cm/S Profundal 46 Proximal SFA 68 Mid SFA 80 Distal SFA 75 Popliteal 61 Proximal FRANCESCA 26 Tibial-peroneal trunk 101 Proximal SHOE FOLDER 23 Distal SHOE FOLDER 35 Distal FRANCESCA 65 Right lower extremity arterial Doppler velocity chart: Right RAIL TRACTOR OPERATOR PSV 137 cm/S Profundal 67 Proximal SFA 65 Mid SFA 89 Distal SFA 44 Popliteal 57 Proximal FRANCESCA 36 Tibial-peroneal trunk 48 Proximal SHOE FOLDER 51 Distal SHOE FOLDER 54 Distal FRANCESCA 60 IMPRESSION: Suspect residual thrombus in the SHOE FOLDER and FRANCESCA on the left. Ankle brachial index measured reduced compared to the prior study. No significant atherosclerotic changes on the right. <Electronically signed by Ap Haynes > 02/27/21 [id number]
== END ==
LOC: M RAD 14:01
PROVIDERS: ATTEND Physician Assistant
DX: I74.3 Embolism and thrombosis of arteries of the lower extremities (principal)

== ENCOUNTER → 2021-03-26 | Outpatient (REF) | payer BC ==
[2021-03-26 16:21] LABS: BASO % 0.3 % (0.0-1.0); EOS # 0.3 10^3/uL (0.0-0.5); HEMATOCRIT 44.7 % (36.0-47.0); HEMOGLOBIN 14.7 g/dl (12.0-15.5); LYMPH # 2.4 10^3/uL (1.5-5.0); LYMPH % 26.8 % (24.0-44.0); MEAN CORPUSCULAR HEMOGLOBIN 29.9 pg (27.0-33.0); MEAN CORPUSCULAR HGB CONC 32.9 g/dl (32.0-36.5); MONO # 0.5 10^3/uL (0.0-0.8); MONO % 5.8 % (2.0-8.0); NEUTROPHILS # 5.8 10^3/uL (1.5-8.5); NEUTROPHILS % 63.4 % (36.0-66.0); PLATELET COUNT, AUTOMATED 298 10^3/uL (150-450); RED BLOOD COUNT 4.91 10^6/uL (4.00-5.40); WHITE BLOOD COUNT 9.1 10^3/uL (4.0-10.0)
[2021-03-26 17:09] LABS: ALBUMIN 3.8 GM/DL (3.2-5.2); ALT/SGPT 64 U/L (12-78); BILIRUBIN,TOTAL 0.3 MG/DL (0.2-1.0); BLOOD UREA NITROGEN 12 MG/DL (7-18); CALCIUM LEVEL 9.2 MG/DL (8.5-10.1); CARBON DIOXIDE LEVEL 27 MEQ/L (21-32); CHLORIDE LEVEL 103 MEQ/L (98-107); CREATININE FOR GFR 0.64 MG/DL (0.55-1.30); GLOMERULAR FILTRATION RATE > 60.0 (>51); GLUCOSE, FASTING 113 MG/DL (70-100); POTASSIUM SERUM 4.1 MEQ/L (3.5-5.1); SODIUM LEVEL 137 MEQ/L (136-145); TOTAL PROTEIN 7.2 GM/DL (6.4-8.2)
== END ==
LOC: M SFHCCAPE 09:37
PROVIDERS: ATTEND Physician Assistant
DX: I10 Essential (primary) hypertension (principal)

== ENCOUNTER → 2021-04-29 | Outpatient (CLI) | payer BC ==
[~2021-04-29] MED LIST changes: +CHLO125TA PO; +FERR325T3 PO; +LOSA50TA88 PO; +ROSU10TA6 PO
== END ==
LOC: M LABSMTC 10:16
PROVIDERS: ATTEND Anesthesiology
DX: Z01.818 Encounter for other preprocedural examination (principal); Z11.52 Encounter for screening for COVID-19

== ENCOUNTER 2021-05-04 07:31 | Day surgery (SDC) | payer BC ==
[~2021-05-04] VITALS: Ht 157.5 cm; Wt 108.9 kg
[~2021-05-04 07:31] MED LIST changes: +LIDOCAINE 2% 100MG/5ML SDV (FOR ANES.) As Ordered ONE; +LOSA100T45 PO; -LOSA100T50 PO; +LOSA50TA28 PO; -LOSA50TA88 PO; +NS 1,000 ML IV ONE; +fentaNYL 100 MCG/2 ML INJECTION (J3010) As Ordered ONE; +propofoL 500 MG/50 ML VIAL As Ordered ONE
[2021-05-04] MEDS ORDERED: propofoL 200 MG/20 ML VIAL As Ordered ONE (08:59)
[2021-05-04 09:25] VITALS: BP 130/73
== END 2021-05-04 09:45 | disposition home or self-care (01) ==
LOC: M OPP 07:31
PROVIDERS: ATTEND Internal Medicine Gastroenterology
DX: Z12.11 Encounter for screening for malignant neoplasm of colon (principal); K64.0 First degree hemorrhoids; K44.9 Diaphragmatic hernia without obstruction or gangrene; R12 Heartburn; K22.8 Other specified diseases of esophagus; Z79.899 Other long term (current) drug therapy; Z87.891 Personal history of nicotine dependence
CPT/HCPCS: 43239; 45378; 88305; J3010

== ENCOUNTER → 2021-06-19 | Outpatient (CLI) | payer BC ==
[~2021-06-19] MED LIST changes: -LIDOCAINE 2% 100MG/5ML SDV (FOR ANES.) As Ordered ONE; -LOSA100T45 PO; +LOSA100T50 PO; -LOSA50TA28 PO; +LOSA50TA88 PO; -NS 1,000 ML IV ONE; -fentaNYL 100 MCG/2 ML INJECTION (J3010) As Ordered ONE; -propofoL 500 MG/50 ML VIAL As Ordered ONE
[2021-06-19 10:18] LABS: BASO % 0.4 % (0.0-1.0); EOS # 0.3 10^3/uL (0.0-0.5); EOS % 3.8 % (0.0-3.0); HEMATOCRIT 42.9 % (36.0-47.0); HEMOGLOBIN 14.6 g/dl (12.0-15.5); LYMPH # 2.5 10^3/uL (1.5-5.0); LYMPH % 31.1 % (24.0-44.0); MEAN CORPUSCULAR HEMOGLOBIN 31.5 pg (27.0-33.0); MEAN CORPUSCULAR VOLUME 92.7 fl (80.0-96.0); MONO # 0.7 10^3/uL (0.0-0.8); MONO % 8.4 % (2.0-8.0); NEUTROPHILS # 4.5 10^3/uL (1.5-8.5); NEUTROPHILS % 55.5 % (36.0-66.0); PLATELET COUNT, AUTOMATED 260 10^3/uL (150-450); RED BLOOD COUNT 4.63 10^6/uL (4.00-5.40)
[2021-06-19 10:56] LABS: HEMOGLOBIN A1c 5.4 %
[2021-06-19 10:58] LABS: ALBUMIN 3.4 GM/DL (3.2-5.2); ALT/SGPT 69 U/L (12-78); BILIRUBIN,TOTAL 0.4 MG/DL (0.2-1.0); BLOOD UREA NITROGEN 16 MG/DL (7-18); CALCIUM LEVEL 9.1 MG/DL (8.5-10.1); CARBON DIOXIDE LEVEL 33 MEQ/L (21-32); CHLORIDE LEVEL 102 MEQ/L (98-107); CHOLESTEROL LEVEL 188 MG/DL (<200); CHOLESTEROL RISK RATIO 5.222 (<5); CREATININE FOR GFR 0.71 MG/DL (0.55-1.30); FREE T4 0.85 NG/DL (0.76-1.46); GLOMERULAR FILTRATION RATE > 60.0 (>51); GLUCOSE, FASTING 99 MG/DL (70-100); HDL CHOLESTEROL 36 MG/DL (>40); IRON (FE) 63 UG/DL (50-170); LDL CHOLESTEROL 117 MG/DL (<100); NON-HDL-C 152 MG/DL; POTASSIUM SERUM 3.3 MEQ/L (3.5-5.1); SODIUM LEVEL 139 MEQ/L (136-145); TOTAL PROTEIN 6.9 GM/DL (6.4-8.2); TRIGLYCERIDES LEVEL 175 MG/DL (<150)
[2021-06-19 11:01] LABS: TOTAL 25(OH) VITAMIN D 54.8 NG/ML (30.0-100.0)
[2021-06-19 11:02] LABS: VITAMIN B12 LEVEL 415 PG/ML
[2021-06-19 11:03] LABS: FOLATE 15.7 NG/ML
== END ==
LOC: M WUC 08:35
PROVIDERS: ATTEND Physician Assistant
DX: R73.01 Impaired fasting glucose (principal); I10 Essential (primary) hypertension; E78.5 Hyperlipidemia, unspecified; R53.83 Other fatigue; E66.01 Morbid (severe) obesity due to excess calories

== ENCOUNTER → 2021-07-24 | Outpatient (CLI) | payer BC ==
[2021-07-24 13:01] LABS: BLOOD UREA NITROGEN 16 MG/DL (7-18); CALCIUM LEVEL 9.4 MG/DL (8.5-10.1); CARBON DIOXIDE LEVEL 29 MEQ/L (21-32); CHLORIDE LEVEL 106 MEQ/L (98-107); GLOMERULAR FILTRATION RATE > 60.0 (>51); GLUCOSE, FASTING 116 MG/DL (70-100); MAGNESIUM LEVEL 2.3 MG/DL (1.8-2.4); POTASSIUM SERUM 3.6 MEQ/L (3.5-5.1); SODIUM LEVEL 141 MEQ/L (136-145)
== END ==
LOC: M WUC 08:54
PROVIDERS: ATTEND Physician Assistant
DX: E87.6 Hypokalemia (principal)

== ENCOUNTER → 2022-09-20 | Outpatient (REF) | payer BC ==
[~2022-09-20] MED LIST changes: +LOSA100T45 PO; -LOSA100T50 PO; +LOSA50TA28 PO; -LOSA50TA88 PO
[2022-09-20 17:08] LABS: BASO % 0.2 % (0.0-1.0); EOS # 0.2 10^3/uL (0.0-0.5); EOS % 2.8 % (0.0-3.0); HEMATOCRIT 41.8 % (36.0-47.0); HEMOGLOBIN 14.2 g/dl (12.0-15.5); LYMPH # 2.5 10^3/uL (1.5-5.0); LYMPH % 30.3 % (24.0-44.0); MEAN CORPUSCULAR HEMOGLOBIN 30.9 pg (27.0-33.0); MEAN CORPUSCULAR VOLUME 91.1 fl (80.0-96.0); MONO # 0.5 10^3/uL (0.0-0.8); MONO % 6.5 % (2.0-8.0); NEUTROPHILS % 59.7 % (36.0-66.0); PLATELET COUNT, AUTOMATED 249 10^3/uL (150-450); RED BLOOD COUNT 4.59 10^6/uL (4.00-5.40); WHITE BLOOD COUNT 8.3 10^3/uL (4.0-10.0)
[2022-09-20 17:35] LABS: ALBUMIN 3.8 G/DL (3.2-5.2); ALKALINE PHOSPHATASE 94 U/L (46-116); ALT/SGPT 55 U/L (7.0-40); AST/SGOT 28 U/L (<34); BILIRUBIN,TOTAL 0.7 MG/DL (0.3-1.2); BLOOD UREA NITROGEN 17 MG/DL (9-23); CALCIUM LEVEL 9.3 MG/DL (8.5-10.1); CARBON DIOXIDE LEVEL 26 MMOL/L (20-31); CHLORIDE LEVEL 102 MMOL/L (98-107); CHOLESTEROL LEVEL 165 MG/DL (<200); CHOLESTEROL RISK RATIO 5.07 (<5); CREATININE FOR GFR 0.63 MG/DL (0.55-1.30); GLOMERULAR FILTRATION RATE > 60.0 (>51); GLUCOSE, FASTING 92 MG/DL (60-100); HDL CHOLESTEROL 32.5 MG/DL (>40); LDL CHOLESTEROL 93.9 MG/DL (<100); NON-HDL-C 133 MG/DL; POTASSIUM SERUM 3.4 MMOL/L (3.5-5.1); SODIUM LEVEL 138 MMOL/L (136-145); TRIGLYCERIDES LEVEL 193 MG/DL (<150)
[2022-09-20 17:38] LABS: FREE T4 1.14 NG/DL (0.89-1.76); THYROID STIMULATING HORMONE 2.498 uIU/ML (0.55-4.78)
[2022-09-20 17:39] LABS: TOTAL 25(OH) VITAMIN D 59.4 NG/ML (20.0-100.0)
[2022-09-20 17:41] LABS: HEMOGLOBIN A1c 5.2 % (4.0-6.0)
== END ==
LOC: M SFHCCAPE 10:05
PROVIDERS: ATTEND Physician Assistant
DX: Z00.00 Encounter for general adult medical examination without abnormal findings (principal)

== ENCOUNTER → 2022-11-15 | Outpatient (REF) | payer BC ==
[2022-11-15 18:46] LABS: BLOOD UREA NITROGEN 17 MG/DL (9-23); CALCIUM LEVEL 9.3 MG/DL (8.5-10.1); CARBON DIOXIDE LEVEL 27 MMOL/L (20-31); CHLORIDE LEVEL 101 MMOL/L (98-107); GLOMERULAR FILTRATION RATE > 60.0 (>51); GLUCOSE, FASTING 96 MG/DL (60-100); MAGNESIUM LEVEL 1.9 MG/DL (1.8-2.4); POTASSIUM SERUM 3.2 MMOL/L (3.5-5.1); SODIUM LEVEL 139 MMOL/L (136-145)
== END ==
LOC: M SFHCCAPE 08:30
PROVIDERS: ATTEND Physician Assistant
DX: E87.6 Hypokalemia (principal)

== ENCOUNTER → 2022-12-06 | Outpatient (REF) | payer BC | LOC: M SFHCCAPE 07:32 | PROVIDERS: ATTEND Physician Assistant | DX: E87.6 Hypokalemia (principal) ==

== ENCOUNTER → 2023-01-17 | Outpatient (REF) | payer BC ==
[~2023-01-17] MED LIST changes: -LOSA100T45 PO; +LOSA100T46 PO
== END ==
LOC: M SFHCWAGY 13:05
PROVIDERS: ATTEND Nurse Practitioner Family
DX: Z12.4 Encounter for screening for malignant neoplasm of cervix (principal)
CPT/HCPCS: 87624; G0123

== ENCOUNTER → 2023-06-14 | Outpatient (REF) | payer BC ==
[2023-06-14 18:30] LABS: ALKALINE PHOSPHATASE 81 U/L (46-116); ALT/SGPT 45 U/L (7.0-40); AST/SGOT 28 U/L (<34); BILIRUBIN,TOTAL 0.6 MG/DL (0.3-1.2); BLOOD UREA NITROGEN 11 MG/DL (9-23); CALCIUM LEVEL 10.4 MG/DL (8.5-10.1); CARBON DIOXIDE LEVEL 29 MMOL/L (20-31); CHLORIDE LEVEL 103 MMOL/L (98-107); CHOLESTEROL LEVEL 168 MG/DL (<200); CHOLESTEROL RISK RATIO 4.51 (<5); CREATININE FOR GFR 0.68 MG/DL (0.55-1.30); GLOMERULAR FILTRATION RATE > 60.0 (>51); GLUCOSE, FASTING 92 MG/DL (60-100); HDL CHOLESTEROL 37.2 MG/DL (>40); LDL CHOLESTEROL 74.4 MG/DL (<100); NON-HDL-C 130.8 MG/DL; POTASSIUM SERUM 3.3 MMOL/L (3.5-5.1); SODIUM LEVEL 141 MMOL/L (136-145); TOTAL PROTEIN 7.1 G/DL (5.7-8.2); TRIGLYCERIDES LEVEL 282 MG/DL (<150)
== END ==
LOC: M SFHCCAPE 07:13
PROVIDERS: ATTEND Physician Assistant Medical
DX: E78.5 Hyperlipidemia, unspecified (principal)

== ENCOUNTER → 2023-08-08 | Outpatient (REF) | payer BC ==
[2023-08-08 17:51] LABS: ALBUMIN 3.7 G/DL (3.2-5.2); ALKALINE PHOSPHATASE 79 U/L (46-116); ALT/SGPT 39 U/L (7.0-40); AST/SGOT 24 U/L (<34); BILIRUBIN,TOTAL 0.4 MG/DL (0.3-1.2); BLOOD UREA NITROGEN 16 MG/DL (9-23); CALCIUM LEVEL 9.8 MG/DL (8.5-10.1); CARBON DIOXIDE LEVEL 28 MMOL/L (20-31); CHLORIDE LEVEL 103 MMOL/L (98-107); GLOMERULAR FILTRATION RATE > 60.0 (>51); GLUCOSE, FASTING 92 MG/DL (60-100); POTASSIUM SERUM 3.9 MMOL/L (3.5-5.1); SODIUM LEVEL 141 MMOL/L (136-145); TOTAL PROTEIN 6.8 G/DL (5.7-8.2)
== END ==
LOC: M SFHCCAPE 07:49
PROVIDERS: ATTEND Physician Assistant Medical
DX: I10 Essential (primary) hypertension (principal)

== ENCOUNTER → 2024-01-02 | Outpatient (REF) | payer BC ==
[2024-01-02 18:33] LABS: BASO % 0.4 % (0.0-1.0); EOS # 0.3 10^3/uL (0.0-0.5); EOS % 2.8 % (0.0-3.0); HEMATOCRIT 45.4 % (36.0-47.0); HEMOGLOBIN 15.7 g/dl (12.0-15.5); LYMPH # 3.5 10^3/uL (1.5-5.0); LYMPH % 34.9 % (24.0-44.0); MEAN CORPUSCULAR HEMOGLOBIN 30.7 pg (27.0-33.0); MEAN CORPUSCULAR HGB CONC 34.6 g/dl (32.0-36.5); MEAN CORPUSCULAR VOLUME 88.7 fl (80.0-96.0); MONO # 0.7 10^3/uL (0.0-0.8); MONO % 7.2 % (2.0-8.0); NEUTROPHILS # 5.5 10^3/uL (1.5-8.5); NEUTROPHILS % 54.3 % (36.0-66.0); PLATELET COUNT, AUTOMATED 322 10^3/uL (150-450); RED BLOOD COUNT 5.12 10^6/uL (4.00-5.40); WHITE BLOOD COUNT 10.1 10^3/uL (4.0-10.0)
[2024-01-02 18:34] LABS: ALBUMIN 3.5 G/DL (3.2-5.2); ALKALINE PHOSPHATASE 74 U/L (46-116); ALT/SGPT 39 U/L (7.0-40); AST/SGOT 25 U/L (<34); BILIRUBIN,TOTAL 0.4 MG/DL (0.3-1.2); BLOOD UREA NITROGEN 12 MG/DL (9-23); CALCIUM LEVEL 9.9 MG/DL (8.5-10.1); CARBON DIOXIDE LEVEL 28 MMOL/L (20-31); CHLORIDE LEVEL 105 MMOL/L (98-107); CHOLESTEROL LEVEL 182 MG/DL (<200); CHOLESTEROL RISK RATIO 4.42 (<5); CREATININE FOR GFR 0.68 MG/DL (0.55-1.30); GLOMERULAR FILTRATION RATE > 60.0 (>51); GLUCOSE, FASTING 97 MG/DL (60-100); HDL CHOLESTEROL 41.1 MG/DL (>40); LDL CHOLESTEROL 90.7 MG/DL (<100); MAGNESIUM LEVEL 1.9 MG/DL (1.8-2.4); NON-HDL-C 140.9 MG/DL; POTASSIUM SERUM 3.5 MMOL/L (3.5-5.1); SODIUM LEVEL 141 MMOL/L (136-145); TOTAL PROTEIN 6.7 G/DL (5.7-8.2); TRIGLYCERIDES LEVEL 251 MG/DL (<150)
[2024-01-02 18:35] LABS: FREE T4 1.17 NG/DL (0.89-1.76); THYROID STIMULATING HORMONE 1.959 uIU/ML (0.55-4.78)
[2024-01-02 19:22] LABS: HEMOGLOBIN A1c 4.8 % (4.0-6.0)
== END ==
LOC: M SFHCCAPE 07:31
PROVIDERS: ATTEND Physician Assistant Medical
DX: E78.5 Hyperlipidemia, unspecified (principal); I10 Essential (primary) hypertension; K21.9 Gastro-esophageal reflux disease without esophagitis; Z13.1 Encounter for screening for diabetes mellitus

== ENCOUNTER → 2024-11-05 | Outpatient (REF) | payer BC ==
[~2024-11-05] MED LIST changes: +OMEG-28 PO; -OMEG1CAP85 PO; -ROSU10TA6 PO; +ROSU10TA61 PO
[2024-11-05 17:40] LABS: ALBUMIN 3.6 G/DL (3.2-5.2); ALKALINE PHOSPHATASE 87 U/L (35-104); ALT/SGPT 35 U/L (7.0-40); AST/SGOT 25 U/L (<34); BASO % 0.4 % (0.0-1.0); BILIRUBIN,TOTAL 0.4 MG/DL (0.3-1.2); BLOOD UREA NITROGEN 24 MG/DL (9-23); CALCIUM LEVEL 9.5 MG/DL (8.5-10.1); CARBON DIOXIDE LEVEL 28 MMOL/L (20-31); CHLORIDE LEVEL 104 MMOL/L (98-107); CHOLESTEROL LEVEL 254 MG/DL (<200); CHOLESTEROL RISK RATIO 3.81 (<5); CREATININE FOR GFR 0.62 MG/DL (0.55-1.30); EOS # 0.2 10^3/uL (0.0-0.5); EOS % 2.3 % (0.0-3.0); GLOMERULAR FILTRATION RATE > 60.0 (>51); GLUCOSE, FASTING 111 MG/DL (60-100); HDL CHOLESTEROL 66.6 MG/DL (>40); HEMATOCRIT 46.6 % (36.0-47.0); HEMOGLOBIN 15.4 g/dl (12.0-15.5); LDL CHOLESTEROL 155.8 MG/DL (<100); LYMPH % 27.3 % (24.0-44.0); MEAN CORPUSCULAR HEMOGLOBIN 30.6 pg (27.0-33.0); MEAN CORPUSCULAR VOLUME 92.6 fl (80.0-96.0); MONO # 0.6 10^3/uL (0.0-0.8); MONO % 7.8 % (2.0-8.0); NEUTROPHILS # 4.6 10^3/uL (1.5-8.5); NEUTROPHILS % 61.5 % (36.0-66.0); NON-HDL-C 187.4 MG/DL; PLATELET COUNT, AUTOMATED 279 10^3/uL (150-450); POTASSIUM SERUM 3.9 MMOL/L (3.5-5.1); RED BLOOD COUNT 5.03 10^6/uL (4.00-5.40); SODIUM LEVEL 140 MMOL/L (136-145); TOTAL PROTEIN 6.9 G/DL (5.7-8.2); TRIGLYCERIDES LEVEL 158 MG/DL (<150); WHITE BLOOD COUNT 7.4 10^3/uL (4.0-10.0)
== END ==
LOC: M SFHCCAPE 07:18
PROVIDERS: ATTEND Physician Assistant Medical
DX: I74.3 Embolism and thrombosis of arteries of the lower extremities (principal); E78.5 Hyperlipidemia, unspecified; E66.01 Morbid (severe) obesity due to excess calories; I10 Essential (primary) hypertension; K21.9 Gastro-esophageal reflux disease without esophagitis

== ENCOUNTER → 2024-12-06 | Outpatient (REF) | payer BC ==
[2024-12-07 12:42] LABS: Trichomonas vaginalis (AMP) NOT DETECTED (NEGATIVE)
[2024-12-07 13:06] LABS: GC DNA AMPLIFICATION NEGATIVE (NEGATIVE)
== END ==
LOC: M SFHCWAGY 09:50
PROVIDERS: ATTEND Nurse Practitioner Family
DX: N95.0 Postmenopausal bleeding (principal)

== ENCOUNTER → 2024-12-11 | Outpatient (CLI) | payer BC | LOC: M WHC 06:59 | PROVIDERS: ATTEND Nurse Practitioner Family | DX: N95.0 Postmenopausal bleeding (principal) ==

== ENCOUNTER → 2025-07-30 | Outpatient (REF) | payer BC ==
[~2025-07-30] MED LIST changes: -ROSU10TA61 PO; +ROSU10TA90 PO
[2025-08-06 13:12] LABS: HPV APTIMA Detected (Not Detected)
== END ==
LOC: M SFHCWAGY 12:44
PROVIDERS: ATTEND Nurse Practitioner Family
DX: Z12.4 Encounter for screening for malignant neoplasm of cervix (principal); R87.610 Atypical squamous cells of undetermined significance on cytologic smear of cervix (ASC-US)
CPT/HCPCS: 87070; 87624; G0123